=== PATIENT | male | born 1960 | race African-American/Black ===

== ENCOUNTER 2017-06-01 10:14 | Inpatient (IN) | payer OTHER ==
[2017-06-01 13:17] VITALS: BMI 29.5
--- NOTE | 2017-06-01 14:23 | HP ---
CIWA Score - CIWA Score Nausea/Vomitin-No Nausea/No Vomiting Muscle Tremors: 4-Moderate,w/Arms Extend Anxiety: 3 Agitation: 4-Moderately Restless Paroxysmal Sweats: 3 Orientation: 0-Oriented Tacttile Disturbances: 0-None Auditory Disturbances: 0-None Visual Disturbances: 0-None Headache: 0-None Present CIWA-Ar Total Score: 14 Admission ROS BHS - HPI Chief Complaint: I am here to detox from my drinking. Allergies/Adverse Reactions: Allergies Allergy/AdvReac Type Severity Reaction Status Date / Time No Known Allergies Allergy Verified 06/01/17 14:01 History of Present Illness: pt is a 57yr old male with a history of alcohol dependence seeking detox for treatment. Exam Limitations: No Limitations - Ebola screening Have you traveled outside of the country in the last 21 days: No Have you had contact with anyone from an Ebola affected area: No Have you been sick,other than usual withdrawal symptoms: No Do you have a fever: No - Review of Systems Constitutional: No Symptoms Reported, Changes in sleep EENT: reports: No Symptoms Reported Respiratory: reports: No Symptoms reported Cardiac: reports: Lightheadedness GI: reports: Poor Fluid Intake, Indigestion : reports: No Symptoms Reported Musculoskeletal: reports: No Symptoms Reported Integumentary: reports: Flushing, Sweating Neuro: reports: Tingling, Tremors Endocrine: reports: Flushing, Intolerance to Cold, Intolerance to Heat, Increased Hunger Hematology: reports: No Symptoms Reported Psychiatric: reports: Judgement Intact, Mood/Affect Appropiate, Orientated x3, Agitated, Anxious Other Systems: Reviewed and Negative Patient History - Patient Medical History Hx Anemia: No Hx Asthma: No Hx Chronic Obstructive Pulmonary Disease (COPD): No Hx Cancer: No Hx Cardiac Disorders: No Hx Congestive Heart Failure: No Hx Hypertension: No Hx Hypercholesterolemia: No Hx Pacemaker: No HX Cerebrovascular Accident: No Hx Seizures: No Hx Dementia: No Hx Diabetes: No Hx Gastrointestinal Disorders: No Hx Liver Disease: No Hx Genitourinary Disorders: No Hx Sexually Transmitted Disorders: No Hx Renal Disease (ESRD): No Hx Thyroid Disease: No Hx Human Immunodeficiency Virus (HIV): No (negative) Hx Hepatitis C: (negative) Hx Depression: Yes Hx Suicide Attempt: No Hx Bipolar Disorder: No Hx Schizophrenia: Yes - Patient Surgical History Past Surgical History: No Hx Neurologic Surgery: No Hx Cataract Extraction: No Hx Cardiac Surgery: No Hx Lung Surgery: No Hx Breast Surgery: No Hx Breast Biopsy: No Hx Abdominal Surgery: No Hx Appendectomy: No Hx Cholecystectomy: No Hx Genitourinary Surgery: No Hx Section: No Hx Orthopedic Surgery: No Anesthesia Reaction: No - PPD History Previous Implant?: Yes Documented Results: Negative w/o proof PPD to be Administered?: Yes - Smoking Cessation Smoking history: Current every day smoker Have you smoked in the past 12 months: Yes Aproximately how many cigarettes per day: 20 Hx Chewing Tobacco Use: No Initiated information on smoking cessation: Yes 'Breaking Loose' booklet given: 06/01/17 - Substance & Tx. History Hx Alcohol Use: Yes Hx Substance Use: Yes Substance Use Type: Alcohol Hx Substance Use Treatment: Yes - Substances Abused Alcohol-beer Route: Oral Frequency: Daily Amount used: 3-6 pks. beer Age of first use: 16 Date of Last Use: 05/31/17 Family Disease History - Family Disease History Family History: Denies Admission Physical Exam [facility] - Vital Signs Vital Signs: Vital Signs - 24 hr 06/01/17 13:14 Temperature 96.4 F L Pulse Rate 97 H Respiratory 18 Rate Blood Pressure 109/76 - Physical General Appearance: Yes: Appropriately Dressed, Moderate Distress, Tremorous, Irritable, Sweating, Anxious HEENTM: Yes: Hearing grossly Normal, Normal Voice Respiratory: Yes: Lungs Clear, Normal Breath Sounds, No Respiratory Distress Neck: Yes: No masses,lesions,Nodules Breast: Yes: Within Normal Limits Cardiology: Yes: Regular Rhythm, Regular Rate, S1, S2 Abdominal: Yes: Normal Bowel Sounds, Non Tender, Soft Genitourinary: Yes: Within Normal Limits Back: Yes: Normal Inspection Musculoskeletal: Yes: Within Normal Limits, Gait Steady Extremities: Yes: Normal Capillary Refill, Normal Inspection, Non-Tender, Tremors Neurological: Yes: Fully Oriented, Alert, Normal Response Integumentary: Yes: Normal Color, Diaphoresis Lymphatic: Yes: Within Normal Limits - Diagnostic (1) Alcohol dependence with uncomplicated withdrawal Current Visit: Yes Status: Chronic (2) Nicotine dependence Current Visit: Yes Status: Chronic Qualifiers: Nicotine product type: cigarettes Substance use status: uncomplicated Qualified Code(s): F17.210 - Nicotine dependence, cigarettes, uncomplicated; F17.210 - Nicotine dependence, cigarettes, uncomplicated Cleared for Admission [facility] - Detox or Rehab [facility] Level of Care: Medically Managed Detox Regimen/Protocol: Librium [facility] Breath Alcohol Content Breath Alcohol Content: 0.008 Urine Drug Screen - Results Drug Screen Negative: Yes
[2017-06-01] MEDS ORDERED: MENTHOL/PHENOL 1 EACH UD MM PRN (14:24)
[2017-06-01] MEDS ORDERED: LOPERAMIDE HCL 2 MG CAPSULE PO PRN (14:24)
[2017-06-01] MEDS ORDERED: MAGNESIUM CITRATE 300 ML BOTTLE PO PRN (14:24)
[2017-06-01] MEDS ORDERED: guaiFENesin/D-METHORPHAN HB 10 ML UNIT-DOSE CUPS PO PRN (14:24)
[2017-06-01] MEDS ORDERED: IBUPROFEN 400 MG TABLET (FP) PO PRN (14:24)
[2017-06-01] MEDS ORDERED: diphenhydrAMINE HCL 50 MG CAPSULE PO PRN (14:24)
[2017-06-01] MEDS ORDERED: ACETAMINOPHEN 325 MG TABLET (FP) PO PRN (14:24)
[2017-06-01] MEDS ORDERED: MAG HYDROX/AL HYDROX/SIMETH 30 ML UNIT-DOSE CUP PO PRN (14:24)
[2017-06-01] MEDS ORDERED: hydrOXYzine PAMOATE 50 MG CAPSULE (FP) PO PRN (14:24)
[2017-06-01] MEDS ORDERED: NICOTINE POLACRILEX 4 MG GUM BUC PRN (14:24)
[2017-06-01] MEDS ORDERED: MAGNESIUM HYDROX 2400MG/30ML ORAL SUSPENSION 30 ML CUP PO PRN (14:24)
[2017-06-01] MEDS ORDERED: chlordiazePOXIDE HCL 25 MG CAPSULE PO PRN (14:24)
[2017-06-01] MEDS ORDERED: P-EPHED 60MG/TRIPROLIDI 2.5MG TABLET PO PRN (14:24)
[2017-06-01] MEDS ORDERED: chlordiazePOXIDE HCL 25 MG CAPSULE PO ONE (14:48)
[2017-06-01 16:46] LABS: MCH 31.1 pg (25.7-33.7); MCHC 34.3 g/dl (32.0-35.9); MEAN CELL VOLUME 90.7 fl (80-96); MEAN PLT VOLUME 7.9 fl (7.5-11.1); PLATELET COUNT 265 K/MM3 (134-434); RDW 14.2 % (11.9-15.9); WHITE BLOOD COUNT 3.8 K/mm3 (4.0-10.0)
[2017-06-01 17:08] LABS: ALBUMIN 3.5 g/dl (3.4-5.0); ANION GAP 6 (8-16); BILIRUBIN,TOTAL 0.3 mg/dL (0.2-1.0); CALCIUM 9.1 mg/dL (8.5-10.1); CO2 28 mmol/L (21-32); CREATININE 1.1 mg/dL (0.7-1.3); GLUCOSE,RANDOM 92 mg/dL (74-106); SGOT/AST 10 U/L (15-37); SGPT/ALT 11 U/L (12-78)
[2017-06-01 17:09] LABS: ALK PHOS 101 U/L (45-117); TOT PROT 7.1 g/dl (6.4-8.2)
[2017-06-01] MEDS: chlordiazePOXIDE HCL 25 MG CAPSULE PO SCH ×2 (17:34→22:13)
[2017-06-01 21:03] LABS: URINE APPEARANCE CLEAR; URINE BILIRUBIN NEGATIVE (NEGATIVE); URINE BLOOD NEGATIVE (NEGATIVE); URINE COLOR STRAW; URINE GLUCOSE (UA) 1+ (NEGATIVE); URINE KETONE NEGATIVE (NEGATIVE); URINE NITRITE NEGATIVE (NEGATIVE); URINE PROTEIN NEGATIVE (NEGATIVE); URINE UROBILINOGEN NEGATIVE mg/dL (0.2-1.0)
[2017-06-01] MEDS: THIAMINE HCL 100 MG TABLET (FP) PO SCH (22:13)
[2017-06-01 22:28] LABS: URINE LEUK ESTERASE Negative (NEGATIVE)
[2017-06-02] MEDS: chlordiazePOXIDE HCL 25 MG CAPSULE PO SCH ×4 (05:54→22:16)
[2017-06-02] MEDS: PRENATAL VITAMINS W/ FOLIC ACID TABLET (FP) PO SCH (10:07)
[2017-06-02] MEDS: NICOTINE 21 MG/24 HOURS TOPICAL PATCH TD SCH (10:08)
--- NOTE | 2017-06-02 10:18 | CONSULT ---
[facility] Psychiatric Consult - Data Date of interview: 06/02/17 Admission source: [facility] Identifying data: Mr Shultz is a 57 years old single Black male, unemployed on SSI, sharing apartment in program([facility]) Substance Abuse History: Reports history of alcohol use. He started drinking alcohol at age 16, consumes 3x 6pk daily. Last drink on 05/31/17 Medical History: Unremarkable. Smokes cigarettes 1ppd Psychiatric History: Patient is not a good historian. However, reports that he was diagnosed with Schizophrenia more than 10 years ago. Reports 2 previous psychiatric admissions. Claims he does not recall date, name of institution and other details pertaining to these hospitalizations. [facility] that [facility]. He was prescribed [place] 900 mg po HS, Seroquel 200 mg po HS and Invega Sust 156 mg IM Q monthly. Claims that he was last given the injection in a hospital on 05/25/17 . At present, denies experiencing psychotic, depressive symptos, S/H ideations Physical/Sexual Abuse/Trauma History: Denies history of verbal, physical or sexual abuse as well as DV relationship Additional Comment: Reports 6 previous felony convictions. On parole till 2019 Mental Status Exam - Mental Status Exam Alert and Oriented to: Time, Place, Person Cognitive Function: Fair Patient Appearance: Disheveled Mood: Hopeful, Euthymic Affect: Blunted Patient Behavior: Cooperative Speech Pattern: Clear Voice Loudness: Normal Thought Process: Intact Thought Disorder: Present Hallucinations: Denies Suicidal Ideation: Denies Homicidal Ideation: Denies Insight/Judgement: Fair Sleep: Well Appetite: Poor Muscle strength/Tone: Normal Gait/Station: Normal Psychiatric Findings - Problem List ([place] 1, 2,3) (1) Schizophrenia Current Visit: Yes Status: Acute (2) Schizoaffective disorder Current Visit: Yes Status: Ruled-out (3) Alcohol dependence with uncomplicated withdrawal Current Visit: Yes Status: Acute (4) Nicotine dependence Current Visit: Yes Status: Acute - Initial Treatment Plan Initial Treatment Plan: 1) Start Seroquel 200 mg po HS. 2) [place] serum level. 3) Continue inpatient detoxificatio while monitoring for evidence of psychotic decompensation
--- NOTE | 2017-06-02 10:39 | PN ---
[facility] CIWA - CIWA Score Nausea/Vomitin-No Nausea/No Vomiting Muscle Tremors: 4-Moderate,w/Arms Extend Anxiety: 4-Mod. Anxious/Guarded Agitation: 4-Moderately Restless Paroxysmal Sweats: 1-Minimal Palms Moist Orientation: 0-Oriented Tacttile Disturbances: 3-Moderate Itch/Numb/Burn Auditory Disturbances: 0-None Visual Disturbances: 0-None Headache: 0-None Present CIWA-Ar Total Score: 16 BHS Progress Note (SOAP) Subjective: ANXIETY,SWEATS,TREMORS,FATIGUE. Objective: 06/02/17 10:34 Vital Signs Temperature 97.0 F L 06/02/17 09:56 Pulse Rate 78 06/02/17 09:56 Respiratory Rate 18 06/02/17 09:56 Blood Pressure 104/61 06/02/17 09:56 O2 Sat by Pulse Oximetry (%) Laboratory Last Values WBC 3.8 K/mm3 (4.0-10.0) L 06/01/17 14:00 RBC 4.61 M/mm3 (4.00-5.60) 06/01/17 14:00 Hgb 14.4 GM/dL (11.7-16.9) 06/01/17 14:00 Hct 41.8 % (35.4-49) 06/01/17 14:00 MCV 90.7 fl (80-96) 06/01/17 14:00 MCH 31.1 pg (25.7-33.7) 06/01/17 14:00 MCHC 34.3 g/dl (32.0-35.9) 06/01/17 14:00 RDW 14.2 % (11.9-15.9) 06/01/17 14:00 Plt Count 265 K/MM3 (134-434) 06/01/17 14:00 MPV 7.9 fl (7.5-11.1) 06/01/17 14:00 Sodium 141 mmol/L (136-145) 06/01/17 14:00 Potassium 4.4 mmol/L (3.5-5.1) 06/01/17 14:00 Chloride 107 mmol/L (98-107) 06/01/17 14:00 Carbon Dioxide 28 mmol/L (21-32) 06/01/17 14:00 Anion Gap 6 (8-16) L 06/01/17 14:00 BUN 10 mg/dL (7-18) 06/01/17 14:00 Creatinine 1.1 mg/dL (0.7-1.3) 06/01/17 14:00 Creat Clearance w eGFR > 60 (>60) 06/01/17 14:00 Random Glucose 92 mg/dL (74-106) 06/01/17 14:00 Calcium 9.1 mg/dL (8.5-10.1) 06/01/17 14:00 Total Bilirubin 0.3 mg/dL (0.2-1.0) 06/01/17 14:00 AST 10 U/L (15-37) L 06/01/17 14:00 ALT 11 U/L (12-78) L 06/01/17 14:00 Alkaline Phosphatase 101 U/L (45-117) 06/01/17 14:00 Total Protein 7.1 g/dl (6.4-8.2) 06/01/17 14:00 Albumin 3.5 g/dl (3.4-5.0) 06/01/17 14:00 Urine Color Straw 06/01/17 15:59 Urine Appearance Clear 06/01/17 15:59 Urine pH 5.0 (5.0-8.0) 06/01/17 15:59 Ur Specific [place] <= 1.005 (1.005-1.025) 06/01/17 15:59 Urine Protein Negative (NEGATIVE) 06/01/17 15:59 Urine Glucose (UA) 1+ (NEGATIVE) H 06/01/17 15:59 Urine Ketones Negative (NEGATIVE) 06/01/17 15:59 Urine Blood Negative (NEGATIVE) 06/01/17 15:59 Urine Nitrite Negative (NEGATIVE) 06/01/17 15:59 Urine Bilirubin Negative (NEGATIVE) 06/01/17 15:59 Urine Urobilinogen Negative mg/dL (0.2-1.0) 06/01/17 15:59 Ur Leukocyte Esterase Negative (NEGATIVE) 06/01/17 15:59 Assessment: 06/02/17 10:34 WITHDRAWAL SX Plan: CONTINUE DETOX
[2017-06-02 11:21] LABS: HIV 1 & 2 AB NEGATIVE; HIV 1 AGp24 NEGATIVE
[2017-06-02] MEDS: THIAMINE HCL 100 MG TABLET (FP) PO SCH (22:16)
[2017-06-02] MEDS: QUEtiapine FUMARATE 200 MG TABLET PO SCH (22:16)
[2017-06-03] MEDS: chlordiazePOXIDE HCL 25 MG CAPSULE PO SCH ×2 (06:07→10:21)
--- NOTE | 2017-06-03 10:18 | EKG ---
Test Reason : Blood Pressure : / mmHG Vent. Rate : 071 BPM Atrial Rate : 071 BPM P-R Int : 148 ms QRS Dur : 092 ms QT Int : 396 ms P-R-T Axes : 059 -05 011 degrees QTc Int : 430 ms NORMAL SINUS RHYTHM NORMAL ECG NO PREVIOUS ECGS AVAILABLE Confirmed by VAHE CASON, RASHEED ([id number]) on 06/03/2017 10:18:05 AM Referred By: Confirmed By:RASHEED COTTER MD
[2017-06-03] MEDS: NICOTINE 21 MG/24 HOURS TOPICAL PATCH TD SCH (10:21)
[2017-06-03] MEDS: PRENATAL VITAMINS W/ FOLIC ACID TABLET (FP) PO SCH (10:21)
--- NOTE | 2017-06-03 10:40 | PN ---
[facility] CIWA - CIWA Score Nausea/Vomitin-No Nausea/No Vomiting Muscle Tremors: 4-Moderate,w/Arms Extend Anxiety: 4-Mod. Anxious/Guarded Agitation: 4-Moderately Restless Paroxysmal Sweats: 1-Minimal Palms Moist Orientation: 0-Oriented Tacttile Disturbances: 3-Moderate Itch/Numb/Burn Auditory Disturbances: 0-None Visual Disturbances: 0-None Headache: 0-None Present CIWA-Ar Total Score: 16 BHS Progress Note (SOAP) Subjective: SLIGHT ANXIETY. LESS IRRITABILITY. Objective: 06/03/17 10:39 Vital Signs Temperature 96.6 F L 06/03/17 09:43 Pulse Rate 71 06/03/17 09:43 Respiratory Rate 18 06/03/17 09:43 Blood Pressure 127/75 06/03/17 09:43 O2 Sat by Pulse Oximetry (%) Laboratory Last Values WBC 3.8 K/mm3 (4.0-10.0) L 06/01/17 14:00 RBC 4.61 M/mm3 (4.00-5.60) 06/01/17 14:00 Hgb 14.4 GM/dL (11.7-16.9) 06/01/17 14:00 Hct 41.8 % (35.4-49) 06/01/17 14:00 MCV 90.7 fl (80-96) 06/01/17 14:00 MCH 31.1 pg (25.7-33.7) 06/01/17 14:00 MCHC 34.3 g/dl (32.0-35.9) 06/01/17 14:00 RDW 14.2 % (11.9-15.9) 06/01/17 14:00 Plt Count 265 K/MM3 (134-434) 06/01/17 14:00 MPV 7.9 fl (7.5-11.1) 06/01/17 14:00 Sodium 141 mmol/L (136-145) 06/01/17 14:00 Potassium 4.4 mmol/L (3.5-5.1) 06/01/17 14:00 Chloride 107 mmol/L (98-107) 06/01/17 14:00 Carbon Dioxide 28 mmol/L (21-32) 06/01/17 14:00 Anion Gap 6 (8-16) L 06/01/17 14:00 BUN 10 mg/dL (7-18) 06/01/17 14:00 Creatinine 1.1 mg/dL (0.7-1.3) 06/01/17 14:00 Creat Clearance w eGFR > 60 (>60) 06/01/17 14:00 Random Glucose 92 mg/dL (74-106) 06/01/17 14:00 Calcium 9.1 mg/dL (8.5-10.1) 06/01/17 14:00 Total Bilirubin 0.3 mg/dL (0.2-1.0) 06/01/17 14:00 AST 10 U/L (15-37) L 06/01/17 14:00 ALT 11 U/L (12-78) L 06/01/17 14:00 Alkaline Phosphatase 101 U/L (45-117) 06/01/17 14:00 Total Protein 7.1 g/dl (6.4-8.2) 06/01/17 14:00 Albumin 3.5 g/dl (3.4-5.0) 06/01/17 14:00 Urine Color Straw 06/01/17 15:59 Urine Appearance Clear 06/01/17 15:59 Urine pH 5.0 (5.0-8.0) 06/01/17 15:59 Ur Specific [place] <= 1.005 (1.005-1.025) 06/01/17 15:59 Urine Protein Negative (NEGATIVE) 06/01/17 15:59 Urine Glucose (UA) 1+ (NEGATIVE) H 06/01/17 15:59 Urine Ketones Negative (NEGATIVE) 06/01/17 15:59 Urine Blood Negative (NEGATIVE) 06/01/17 15:59 Urine Nitrite Negative (NEGATIVE) 06/01/17 15:59 Urine Bilirubin Negative (NEGATIVE) 06/01/17 15:59 Urine Urobilinogen Negative mg/dL (0.2-1.0) 06/01/17 15:59 Ur Leukocyte Esterase Negative (NEGATIVE) 06/01/17 15:59 [place] 0.5 MEQ/L (0.6-1.2) L 06/02/17 10:30 RPR Titer Nonreactive (NONREACTIVE) 06/01/17 14:00 HIV 1&2 Antibody Screen Negative 06/01/17 08:00 HIV P24 Antigen Negative 06/01/17 08:00 Assessment: 06/03/17 10:40 WITHDRAWAL S Plan: CONTINUE DETOX
[2017-06-03] MEDS: chlordiazePOXIDE 5 MG CAPSULE PO SCH ×2 (17:20→22:16)
[2017-06-03] MEDS: THIAMINE HCL 100 MG TABLET (FP) PO SCH (22:16)
[2017-06-03] MEDS: QUEtiapine FUMARATE 200 MG TABLET PO SCH (22:16)
[2017-06-04] MEDS: chlordiazePOXIDE 5 MG CAPSULE PO SCH ×2 (06:32→10:20)
[2017-06-04] MEDS: NICOTINE 21 MG/24 HOURS TOPICAL PATCH TD SCH (10:20)
[2017-06-04] MEDS: PRENATAL VITAMINS W/ FOLIC ACID TABLET (FP) PO SCH (10:20)
--- NOTE | 2017-06-04 10:34 | PN ---
BHS Progress Note (SOAP) Subjective: DECREASED ANXIETY,TREMORS,SWEATS. ALERT O X 3. NAD. Objective: 06/04/17 10:33 Vital Signs Temperature 96.4 F L 06/04/17 09:38 Pulse Rate 78 06/04/17 09:38 Respiratory Rate 18 06/04/17 09:38 Blood Pressure 104/61 06/04/17 09:38 O2 Sat by Pulse Oximetry (%) Laboratory Last Values WBC 3.8 K/mm3 (4.0-10.0) L 06/01/17 14:00 RBC 4.61 M/mm3 (4.00-5.60) 06/01/17 14:00 Hgb 14.4 GM/dL (11.7-16.9) 06/01/17 14:00 Hct 41.8 % (35.4-49) 06/01/17 14:00 MCV 90.7 fl (80-96) 06/01/17 14:00 MCH 31.1 pg (25.7-33.7) 06/01/17 14:00 MCHC 34.3 g/dl (32.0-35.9) 06/01/17 14:00 RDW 14.2 % (11.9-15.9) 06/01/17 14:00 Plt Count 265 K/MM3 (134-434) 06/01/17 14:00 MPV 7.9 fl (7.5-11.1) 06/01/17 14:00 Sodium 141 mmol/L (136-145) 06/01/17 14:00 Potassium 4.4 mmol/L (3.5-5.1) 06/01/17 14:00 Chloride 107 mmol/L (98-107) 06/01/17 14:00 Carbon Dioxide 28 mmol/L (21-32) 06/01/17 14:00 Anion Gap 6 (8-16) L 06/01/17 14:00 BUN 10 mg/dL (7-18) 06/01/17 14:00 Creatinine 1.1 mg/dL (0.7-1.3) 06/01/17 14:00 Creat Clearance w eGFR > 60 (>60) 06/01/17 14:00 Random Glucose 92 mg/dL (74-106) 06/01/17 14:00 Calcium 9.1 mg/dL (8.5-10.1) 06/01/17 14:00 Total Bilirubin 0.3 mg/dL (0.2-1.0) 06/01/17 14:00 AST 10 U/L (15-37) L 06/01/17 14:00 ALT 11 U/L (12-78) L 06/01/17 14:00 Alkaline Phosphatase 101 U/L (45-117) 06/01/17 14:00 Total Protein 7.1 g/dl (6.4-8.2) 06/01/17 14:00 Albumin 3.5 g/dl (3.4-5.0) 06/01/17 14:00 Urine Color Straw 06/01/17 15:59 Urine Appearance Clear 06/01/17 15:59 Urine pH 5.0 (5.0-8.0) 06/01/17 15:59 Ur Specific [place] <= 1.005 (1.005-1.025) 06/01/17 15:59 Urine Protein Negative (NEGATIVE) 06/01/17 15:59 Urine Glucose (UA) 1+ (NEGATIVE) H 06/01/17 15:59 Urine Ketones Negative (NEGATIVE) 06/01/17 15:59 Urine Blood Negative (NEGATIVE) 06/01/17 15:59 Urine Nitrite Negative (NEGATIVE) 06/01/17 15:59 Urine Bilirubin Negative (NEGATIVE) 06/01/17 15:59 Urine Urobilinogen Negative mg/dL (0.2-1.0) 06/01/17 15:59 Ur Leukocyte Esterase Negative (NEGATIVE) 06/01/17 15:59 [place] 0.5 MEQ/L (0.6-1.2) L 06/02/17 10:30 RPR Titer Nonreactive (NONREACTIVE) 06/01/17 14:00 HIV 1&2 Antibody Screen Negative 06/01/17 08:00 HIV P24 Antigen Negative 06/01/17 08:00 Assessment: 06/04/17 10:33 DECREASED WITHDRAWAL SX Plan: CONTINUE DETOX
[2017-06-04] MEDS: chlordiazePOXIDE HCL 10 MG CAPSULE PO SCH ×2 (17:21→22:29)
[2017-06-04] MEDS: THIAMINE HCL 100 MG TABLET (FP) PO SCH (22:29)
[2017-06-04] MEDS: QUEtiapine FUMARATE 200 MG TABLET PO SCH (22:29)
[2017-06-05] MEDS: chlordiazePOXIDE HCL 10 MG CAPSULE PO SCH ×2 (05:36→10:34)
[2017-06-05] MEDS: PRENATAL VITAMINS W/ FOLIC ACID TABLET (FP) PO SCH (10:34)
[2017-06-05] MEDS: NICOTINE 21 MG/24 HOURS TOPICAL PATCH TD SCH (10:34)
[2017-06-05 13:13] VITALS: BP 114/77; PULSE 89; TEMP 97
--- NOTE | 2017-06-05 15:48 | DS ---
[facility] Detox Discharge Summary Admission Date: 06/01/17 Discharge Date: 06/05/17 - History Present History: Alcohol Dependence Additional Comments: PATIENT ADVISED TO FOLLOW-UP WITH LOCAL 12-STEP / AA OUTPATIENT SUPPORT GROUP FOR AFTERCARE. PATIENT WAS DISCHARGED FROM DETOX UNIT IN STABLE MEDICAL CONDITION. Pertinent Past History: Nicotine Dependence, Depression, Schizophrenia. - Physical Exam Results Vital Signs: Vital Signs Temperature 97.0 F L 06/05/17 13:12 Pulse Rate 89 06/05/17 13:12 Respiratory Rate 18 06/05/17 13:12 Blood Pressure 114/77 06/05/17 13:12 O2 Sat by Pulse Oximetry (%) Pertinent Admission Physical Exam Findings: WITHDRAWAL SYMPTOMS. Laboratory Tests 06/01/17 06/01/17 06/01/17 08:00 14:00 14:00 WBC 3.8 L RBC 4.61 Hgb 14.4 Hct 41.8 MCV 90.7 MCH 31.1 MCHC 34.3 RDW 14.2 Plt Count 265 MPV 7.9 Sodium 141 Potassium 4.4 Chloride 107 Carbon Dioxide 28 Anion Gap 6 L BUN 10 Creatinine 1.1 Creat Clearance w eGFR > 60 Random Glucose 92 Calcium 9.1 Total Bilirubin 0.3 AST 10 L ALT 11 L Alkaline Phosphatase 101 Total Protein 7.1 Albumin 3.5 Urine Color Urine Appearance Urine pH Ur Specific [place] Urine Protein Urine Glucose (UA) Urine Ketones Urine Blood Urine Nitrite Urine Bilirubin Urine Urobilinogen Ur Leukocyte Esterase [place] RPR Titer HIV 1&2 Antibody Screen Negative HIV P24 Antigen Negative 06/01/17 06/01/17 06/02/17 14:00 15:59 10:30 WBC RBC Hgb Hct MCV MCH MCHC RDW Plt Count MPV Sodium Potassium Chloride Carbon Dioxide Anion Gap BUN Creatinine Creat Clearance w eGFR Random Glucose Calcium Total Bilirubin AST ALT Alkaline Phosphatase Total Protein Albumin Urine Color Straw Urine Appearance Clear Urine pH 5.0 Ur Specific [place] <= 1.005 Urine Protein Negative Urine Glucose (UA) 1+ H Urine Ketones Negative Urine Blood Negative Urine Nitrite Negative Urine Bilirubin Negative Urine Urobilinogen Negative Ur Leukocyte Esterase Negative [place] 0.5 L RPR Titer Nonreactive HIV 1&2 Antibody Screen HIV P24 Antigen LABS NOTED. - Treatment Hospital Course: Detox Protocol Followed, Detoxed Safely, Responded well, Discharged Condition Good Patient has Accepted a Rehab Referral to: NO. PT ADVISED TO FOLLOW-UP WITH LOCAL 12-STEP/AA OUTPATIENT SUPPORT GROUP. - Medication Discharge Medications: Ambulatory Orders [place] Carbonate [Eskalith -] 900 mg PO HS 06/01/17 Quetiapine Fumarate [Seroquel -] 200 mg PO HS 06/01/17 - Diagnosis (1) Alcohol dependence with uncomplicated withdrawal Status: Acute (2) Nicotine dependence Status: Chronic Qualifiers: Nicotine product type: cigarettes Substance use status: in withdrawal Qualified Code(s): F17.213 - Nicotine dependence, cigarettes, with withdrawal; F17.213 - Nicotine dependence, cigarettes, with withdrawal (3) Schizophrenia Status: Chronic Qualifiers: Schizophrenia type: unspecified Qualified Code(s): F20.9 - Schizophrenia, unspecified; F20.9 - Schizophrenia, unspecified; F20.9 - Schizophrenia, unspecified; F20.9 - Schizophrenia, unspecified - AMA Did Patient Leave Against Medical Advice: No
== END 2017-06-05 12:45 | disposition home or self-care (01) | DRG 775 ==
LOC: YASAS 10:14 → Y3N 14:46
PROVIDERS: ADMIT Internal Medicine; ATTEND Internal Medicine
PROC: HZ2ZZZZ Detoxification Services for Substance Abuse Treatment (ICD-10-PCS; principal; 2017-06-01)
DX: F10.230 Alcohol dependence with withdrawal, uncomplicated (principal); F17.213 Nicotine dependence, cigarettes, with withdrawal; F20.9 Schizophrenia, unspecified; F25.9 Schizoaffective disorder, unspecified
CPT/HCPCS: 36415; 80053; 80178; 81003; 85027; 86593; 87389; 93005; 93010

== ENCOUNTER 2018-09-29 13:37 | Inpatient (IN) | payer OTHER ==
[2018-09-29 16:26] VITALS: BMI 28.8
--- NOTE | 2018-09-29 16:59 | HP ---
"CIWA Score Nausea/Vomitin Muscle Tremors: 4-Moderate,w/Arms Extend Anxiety: 4-Mod. Anxious/Guarded Agitation: 1-Slight > Activity Paroxysmal Sweats: 3 (Increased facial moisture) Orientation: 0-Oriented Tacttile Disturbances: 0-None Auditory Disturbances: 0-None Visual Disturbances: 0-None Headache: 0-None Present CIWA-Ar Total Score: 15 - Admission Criteria OASAS Guidelines: Admission for Medically Managed Detox: Requires at least one of the followin. CIWA greater than 12 2. Seizures within the past 24 hours 3. Delirium tremens within the past 24 hours 4. Hallucinations within the past 24 hours 5. Acute intervention needed for co occurring medical disorder 6. Acute intervention needed for co occurring psychiatric disorder 7. Severe withdrawal that cannot be handled at a lower level of care (continued vomiting, continued diarrhea, abnormal vital signs) requiring intravenous medication and/or fluids 8. Patient presents the following: CIWA greater than 12 Admission Criteria Met: Admission criteria met Admission ROS [facility] Chief Complaint: Here for alcohol withdrawal and cocaine too. Allergies/Adverse Reactions: Allergies Allergy/AdvReac Type Severity Reaction Status Date / Time No Known Allergies Allergy Verified 09/29/18 17:09 History of Present Illness: Here for alcohol and cocaine. Alcohol use began at age 16. Cocaine use began at age 18. Nicotine use began at age 31. States sharp chest pain about 1-2 minutes approx 1 week ago. States was smoking cigarettes and crack at the time. States went away on own after drinking water. Mental Health: Hx Depression and Schizophrenia. Denies thoughts of harming self or others. States compliant w/ MH meds. Denies seizures, blackouts, or overdose. Search Terms: Martinez Shultz, 1960 Search Date: 09/29/2018 04:49:09 PM The Drug Utilization Report below displays all of the controlled substance prescriptions, if any, that your patient has filled in the last twelve months. The information displayed on this report is compiled from pharmacy submissions to the Department, and accurately reflects the information as submitted by the pharmacies. This report was requested by: Marcela Mcgrath | Reference #: [id number] There are no results for the search terms that you entered. Exam Limitations: No Limitations - Ebola screening Have you traveled outside of the country in the last 21 days: No Have you had contact with anyone from an Ebola affected area: No Have you been sick,other than usual withdrawal symptoms: No Do you have a fever: No - Review of Systems Constitutional: Chills, Diaphoresis EENT: reports: Blurred Vision (Wears glasses), Other (States throat is scratchy) Respiratory: reports: No Symptoms reported Cardiac: reports: No Symptoms Reported, Chest Pain (1 week ago.) GI: reports: Nausea : reports: No Symptoms Reported Musculoskeletal: reports: No Symptoms Reported Integumentary: reports: No Symptoms Reported Neuro: reports: Tremors Endocrine: reports: Increased Thirst Hematology: reports: No Symptoms Reported Psychiatric: reports: Judgement Intact, Orientated x3, Agitated, Anxious, Depressed (Denies thoughts of harming self or others.) Patient History - Patient Medical History Hx Anemia: No Hx Asthma: No Hx Chronic Obstructive Pulmonary Disease (COPD): No Hx Cancer: No Hx Cardiac Disorders: No Hx Congestive Heart Failure: No Hx Hypertension: No Hx Hypercholesterolemia: No Hx Pacemaker: No HX Cerebrovascular Accident: No Hx Seizures: No Hx Dementia: No Hx Diabetes: No Hx Gastrointestinal Disorders: No Hx Liver Disease: No Hx Genitourinary Disorders: No Hx Sexually Transmitted Disorders: No Hx Renal Disease (ESRD): No Hx Thyroid Disease: No Hx Human Immunodeficiency Virus (HIV): No (negative) Hx Hepatitis C: (negative) Hx Depression: Yes Hx Suicide Attempt: No Hx Bipolar Disorder: No Hx Schizophrenia: Yes - Patient Surgical History Past Surgical History: No Hx Neurologic Surgery: No Hx Cataract Extraction: No Hx Cardiac Surgery: No Hx Lung Surgery: No Hx Breast Surgery: No Hx Breast Biopsy: No Hx Abdominal Surgery: No Hx Appendectomy: No Hx Cholecystectomy: No Hx Genitourinary Surgery: No Hx Section: No Hx Orthopedic Surgery: No Anesthesia Reaction: No - PPD History Previous Implant?: Yes Documented Results: Negative w/proof Implanted On Prior R Admission?: Yes Date: 06/03/17 PPD to be Administered?: Yes - Smoking Cessation Smoking history: Current every day smoker Have you smoked in the past 12 months: Yes Aproximately how many cigarettes per day: 20 Hx Chewing Tobacco Use: No Initiated information on smoking cessation: Yes 'Breaking Loose' booklet given: 09/29/18 - Substance & Tx. History Hx Alcohol Use: Yes Hx Substance Use: Yes Substance Use Type: Alcohol, Cocaine Hx Substance Use Treatment: Yes (detox, ) - Substances Abused Alcohol Route: Oral Frequency: Daily Amount used: 1 PINT BEER Age of first use: 16 Date of Last Use: 09/28/18 Cocaine Route: Smoking Frequency: Daily Amount used: 1 GRAM Age of first use: 18 Date of Last Use: 09/28/18 Admission Physical Exam [facility] - Vital Signs Vital Signs: Vital Signs - 24 hr 09/29/18 16:23 Temperature 97.2 F L Pulse Rate 86 Respiratory 20 Rate Blood Pressure 113/71 - Physical General Appearance: Yes: Mild Distress, Tremorous, Irritable (Very irrtiable), Sweating (Increased facial moisture), Anxious HEENTM: Yes: EOMI, Hearing grossly Normal, Normocephalic, Normal Voice, DELIA, Pharynx Normal Respiratory: Yes: Lungs Clear, Normal Breath Sounds, No Respiratory Distress Neck: Yes: No masses,lesions,Nodules, Supple Breast: Yes: Breast Exam Deferred Cardiology: Yes: Regular Rhythm, Regular Rate, S1, S2 Abdominal: Yes: Non Tender, Soft, Increased Bowel Sounds, Protuberent ( Increased abdominal adiposity) Genitourinary: Yes: Within Normal Limits Back: Yes: Normal Inspection Musculoskeletal: Yes: full range of Motion, Gait Steady Extremities: Yes: Normal Capillary Refill, Normal Range of Motion, Non-Tender, Tremors (tremors w/ arm elevation) Neurological: Yes: screen tender II-XII NML intact, Fully Oriented, Alert, Motor Strength 5/5 Integumentary: Yes: Normal Color, Warm, Diaphoresis (Increased facial moisture) Lymphatic: Yes: Within Normal Limits - Diagnostic (1) Cocaine dependence, uncomplicated Current Visit: Yes Status: Chronic (2) Alcohol dependence with uncomplicated withdrawal Current Visit: Yes Status: Acute (3) Nicotine dependence Current Visit: Yes Status: Chronic Qualifiers: Nicotine product type: cigarettes Substance use status: in withdrawal Qualified Code(s): F17.213 - Nicotine dependence, cigarettes, with withdrawal (4) Schizophrenia Current Visit: Yes Status: Chronic Qualifiers: Schizophrenia type: unspecified Qualified Code(s): F20.9 - Schizophrenia, unspecified Cleared for Admission S - Detox or Rehab [facility] Level of Care: Medically Managed Detox Regimen/Protocol: Librium S Breath Alcohol Content Breath Alcohol Content: 0 Urine Drug Screen - Results Drug Screen Negative: No Urine Drug Screen Results: [facility]-Cocaine Inpatient Rehab Admission - Rehab Decision to Admit Inpatient rehab admission?: No"
[2018-09-29] MEDS ORDERED: chlordiazePOXIDE HCL 25 MG CAPSULE PO PRN (20:43)
[2018-09-29] MEDS ORDERED: P-EPHED 60MG/TRIPROLIDI 2.5MG TABLET PO PRN (20:44)
[2018-09-29] MEDS ORDERED: MAG HYDROX/AL HYDROX/SIMETH 30 ML UNIT-DOSE CUP PO PRN (20:44)
[2018-09-29] MEDS ORDERED: MENTHOL/PHENOL 1 EACH UD MM PRN (20:44)
[2018-09-29] MEDS ORDERED: NICOTINE POLACRILEX 2 MG GUM BC PRN (20:44)
[2018-09-29] MEDS ORDERED: ACETAMINOPHEN 325 MG TABLET (FP) PO PRN (20:44)
[2018-09-29] MEDS ORDERED: LOPERAMIDE HCL 2 MG CAPSULE PO PRN (20:44)
[2018-09-29] MEDS ORDERED: MAGNESIUM CITRATE 300 ML BOTTLE PO PRN (20:44)
[2018-09-29] MEDS ORDERED: MAGNESIUM HYDROX 2400MG/30ML ORAL SUSPENSION 30 ML CUP PO PRN (20:44)
[2018-09-29] MEDS ORDERED: IBUPROFEN 400 MG TABLET (FP) PO PRN (20:44)
[2018-09-29] MEDS ORDERED: MELATONIN 5 MG TABLETS PO PRN (22:00)
[2018-09-29] MEDS: THIAMINE HCL 100 MG TABLET (FP) PO SCH (22:27)
[2018-09-29] MEDS: chlordiazePOXIDE HCL 25 MG CAPSULE PO SCH (22:28)
[2018-09-29 23:08] LABS: URINE APPEARANCE CLEAR; URINE BILIRUBIN NEGATIVE (<2.0 mg/dL); URINE COLOR YELLOW; URINE GLUCOSE (UA) NEGATIVE (NEGATIVE); URINE KETONE NEGATIVE (NEGATIVE); URINE LEUK ESTERASE NEGATIVE (NEGATIVE); URINE NITRITE NEGATIVE (NEGATIVE); URINE PROTEIN NEGATIVE (NEGATIVE); URINE UROBILINOGEN 4.0 E.U/dl mg/dL (0.2-1.0)
[2018-09-30] MEDS: chlordiazePOXIDE HCL 25 MG CAPSULE PO SCH ×4 (05:55→22:33)
--- NOTE | 2018-09-30 08:04 | CONSULT ---
[facility] Psychiatric Consult - Data Date of interview: 09/30/18 Admission source: [facility] Identifying data: This is a 58 years old male, single, childless, living with roommate, , unemployed, with SSI financial support, with history of psychiatric hospitalizations, history of Paranoid Schizoiphrenia. Patient is here with Alcohol Cocaine, Nicotine dependence history, is reporting withdrtawal symptoms and seeking for detox.Patient denies suicidal and homicidal history. Substance Abuse History: Alcohol use began at age 16. Cocaine use began at age 18. Nicotine use began at age 31. Smoking history: Current every day smoker. Have you smoked in the past 12 months: Yes. Aproximately how many cigarettes per day: 20. Hx Chewing Tobacco Use: No. Initiated information on smoking cessation: Yes. 'Breaking Loose' booklet given: 09/29/18. - Substance & Tx. History. Hx Alcohol Use: Yes. Hx Substance Use: Yes. Substance Use Type: Alcohol, Cocaine. Hx Substance Use Treatment: Yes (detox, ). - Substances Abused. Alcohol. Route: Oral. Frequency: Daily. Amount used: 1 PINT BEER. Age of first use: 16. Date of Last Use: 09/28/18. Cocaine. Route: Smoking. Frequency: Daily. Amount used: 1 GRAM. Age of first use: 18. Date of Last Use: 09/28/18 Medical History: Patient denies significant medical issues Psychiatric History: Patient reports hsitory of Schizophrenia, history of psychiatric admission with most recent one on 2018 at [facility], reports currently satble on: Invega Sustenna injections 156 mg / month , with last injection done on 09/28/18, Seroquel 300mg po qhs. Patient denies suicidal, homicidal ideation Physical/Sexual Abuse/Trauma History: Unclear Additional Comment: Invega Sustenna injections 156 mg / month , last injection done on 09/28/18,. Seroquel 300mg po qhs Mental Status Exam - Mental Status Exam Alert and Oriented to: Person Cognitive Function: Fair Patient Appearance: Unkempt Mood: Sad Affect: Flat Patient Behavior: Sedated Speech Pattern: Delayed Voice Loudness: Mildly Soft/Quiet Thought Process: Circumstantial, Goal Oriented Thought Disorder: Being Controlled Hallucinations: Denies Suicidal Ideation: Denies Homicidal Ideation: Denies Insight/Judgement: Fair Sleep: Difficulty falling asleep Appetite: Weight gain Muscle strength/Tone: Mild Hypotonicity Gait/Station: Shuffling Additional Comments: Invega Sustenna injections 156 mg / month , last injection done on 09/28/18,. Seroquel 300mg po qhs Psychiatric Findings - Problem List ([place] 1, 2,3) (1) Alcohol dependence with uncomplicated withdrawal Current Visit: Yes Status: Acute (2) Cocaine dependence, uncomplicated Current Visit: Yes Status: Chronic (3) Nicotine dependence Current Visit: Yes Status: Chronic Qualifiers: Nicotine product type: cigarettes Substance use status: in withdrawal Qualified Code(s): F17.213 - Nicotine dependence, cigarettes, with withdrawal (4) Schizophrenia Current Visit: Yes Status: Chronic Qualifiers: Schizophrenia type: unspecified Qualified Code(s): F20.9 - Schizophrenia, unspecified - Initial Treatment Plan Initial Treatment Plan: Invega Sustenna injections 156 mg / month , last injection done on 09/28/18,. Seroquel 300mg po qhs
[2018-09-30 10:29] LABS: HEMATOCRIT 36.9 % (35.4-49); MCH 31.6 pg (25.7-33.7); MCHC 35.3 g/dl (32.0-35.9); MEAN CELL VOLUME 89.6 fl (80-96); MEAN PLT VOLUME 7.7 fl (7.5-11.1); PLATELET COUNT 220 K/MM3 (134-434); RBC 4.12 M/mm3 (4.00-5.60); RDW 13.9 % (11.9-15.9); WHITE BLOOD COUNT 4.2 K/mm3 (4.0-10.0)
--- NOTE | 2018-09-30 10:49 | PN ---
S CIWA - CIWA Score Nausea/Vomitin-No Nausea/No Vomiting Muscle Tremors: 4-Moderate,w/Arms Extend Anxiety: 4-Mod. Anxious/Guarded Agitation: 3 Paroxysmal Sweats: 3 Orientation: 0-Oriented Tacttile Disturbances: 0-None Auditory Disturbances: 0-None Visual Disturbances: 0-None Headache: 0-None Present CIWA-Ar Total Score: 14 [facility] Progress Note (SOAP) Subjective: sweats shakes interrupted sleep body aches irritable Objective: 09/30/18 10:48 Vital Signs Temperature 97.5 F L 09/30/18 10:21 Pulse Rate 77 09/30/18 10:21 Respiratory Rate 18 09/30/18 10:21 Blood Pressure 110/64 09/30/18 10:21 O2 Sat by Pulse Oximetry (%) Laboratory Tests 09/29/18 09/30/18 22:00 07:00 WBC 4.2 RBC 4.12 Hgb 13.0 Hct 36.9 MCV 89.6 MCH 31.6 MCHC 35.3 RDW 13.9 Plt Count 220 MPV 7.7 Urine Color Yellow Urine Appearance Clear Urine pH 5.0 Ur Specific [place] 1.023 Urine Protein Negative Urine Glucose (UA) Negative Urine Ketones Negative Urine Blood Negative Urine Nitrite Negative Urine Bilirubin Negative Urine Urobilinogen 4.0 e.u/dl Ur Leukocyte Esterase Negative rest of labs pending aaox3 ambulating no acute distress Assessment: 09/30/18 10:49 withdrawal sx Plan: continue detox increase fluids f/u pending labs
[2018-09-30] MEDS: PRENATAL VITAMINS W/ FOLIC ACID TABLET (FP) PO SCH (10:59)
[2018-09-30] MEDS: NICOTINE 14 MG/24 HOURS TOPICAL PATCH TD SCH (11:00)
[2018-09-30 11:08] LABS: ALBUMIN 3.1 g/dl (3.4-5.0); ALK PHOS 77 U/L (45-117); ANION GAP 5 MMOL/L (8-16); BILIRUBIN,TOTAL 0.3 mg/dL (0.2-1); BLOOD UREA NITROGEN 18 mg/dL (7-18); CALCIUM 8.6 mg/dL (8.5-10.1); CHLORIDE 106 mmol/L (98-107); CO2 28 mmol/L (21-32); CREATININE 0.9 mg/dL (0.55-1.3); GLUCOSE,RANDOM 96 mg/dL (74-106); SGOT/AST 16 U/L (15-37); SGPT/ALT 11 U/L (13-61); SODIUM 139 mmol/L (136-145)
--- NOTE | 2018-09-30 16:47 | EKG ---
Test Reason : Blood Pressure : / mmHG Vent. Rate : 078 BPM Atrial Rate : 078 BPM P-R Int : 136 ms QRS Dur : 078 ms QT Int : 378 ms P-R-T Axes : 066 019 030 degrees QTc Int : 430 ms NORMAL SINUS RHYTHM NORMAL ECG WHEN COMPARED WITH ECG OF 01-JUN-2017 15:32, NO SIGNIFICANT CHANGE WAS FOUND Confirmed by CRIS SMITH MD ([id number]) on 09/30/2018 4:47:25 PM Referred By: Confirmed By:CRIS SMITH MD
[2018-09-30] MEDS: QUEtiapine FUMARATE 300 MG TABLET PO SCH (22:33)
[2018-09-30] MEDS: THIAMINE HCL 100 MG TABLET (FP) PO SCH (22:33)
[2018-10-01] MEDS: chlordiazePOXIDE HCL 25 MG CAPSULE PO SCH ×3 (05:37→16:57)
[2018-10-01] MEDS: PRENATAL VITAMINS W/ FOLIC ACID TABLET (FP) PO SCH (10:28)
[2018-10-01] MEDS: NICOTINE 14 MG/24 HOURS TOPICAL PATCH TD SCH (10:28)
--- NOTE | 2018-10-01 12:44 | PN ---
[facility] CIWA - CIWA Score Nausea/Vomitin-No Nausea/No Vomiting Muscle Tremors: 3 Anxiety: 3 Agitation: 3 Paroxysmal Sweats: 2 Orientation: 0-Oriented Tacttile Disturbances: 0-None Auditory Disturbances: 0-None Visual Disturbances: 0-None Headache: 0-None Present CIWA-Ar Total Score: 11 [facility] Progress Note (SOAP) Subjective: sweats anxiety irritable agitation Objective: 10/01/18 12:44 Vital Signs Temperature 98.2 F 10/01/18 09:23 Pulse Rate 84 10/01/18 09:23 Respiratory Rate 19 10/01/18 09:23 Blood Pressure 112/69 10/01/18 09:23 O2 Sat by Pulse Oximetry (%) Laboratory Tests 09/29/18 09/30/18 09/30/18 22:00 07:00 07:00 WBC 4.2 RBC 4.12 Hgb 13.0 Hct 36.9 MCV 89.6 MCH 31.6 MCHC 35.3 RDW 13.9 Plt Count 220 MPV 7.7 Sodium 139 Potassium 4.0 Chloride 106 Carbon Dioxide 28 Anion Gap 5 L BUN 18 Creatinine 0.9 Creat Clearance w eGFR > 60 Random Glucose 96 Calcium 8.6 Total Bilirubin 0.3 AST 16 ALT 11 L Alkaline Phosphatase 77 Total Protein 6.0 L Albumin 3.1 L Urine Color Yellow Urine Appearance Clear Urine pH 5.0 Ur Specific [place] 1.023 Urine Protein Negative Urine Glucose (UA) Negative Urine Ketones Negative Urine Blood Negative Urine Nitrite Negative Urine Bilirubin Negative Urine Urobilinogen 4.0 e.u/dl Ur Leukocyte Esterase Negative RPR Titer 09/30/18 07:00 WBC RBC Hgb Hct MCV MCH MCHC RDW Plt Count MPV Sodium Potassium Chloride Carbon Dioxide Anion Gap BUN Creatinine Creat Clearance w eGFR Random Glucose Calcium Total Bilirubin AST ALT Alkaline Phosphatase Total Protein Albumin Urine Color Urine Appearance Urine pH Ur Specific [place] Urine Protein Urine Glucose (UA) Urine Ketones Urine Blood Urine Nitrite Urine Bilirubin Urine Urobilinogen Ur Leukocyte Esterase RPR Titer Nonreactive aaox3 ambulating no acute distress Assessment: 10/01/18 12:44 mild withdrawal sx Plan: continue detox increase fluids
[2018-10-01] MEDS: chlordiazePOXIDE 5 MG CAPSULE PO SCH (22:14)
[2018-10-01] MEDS: QUEtiapine FUMARATE 300 MG TABLET PO SCH (22:14)
[2018-10-01] MEDS: THIAMINE HCL 100 MG TABLET (FP) PO SCH (22:14)
[2018-10-02] MEDS: chlordiazePOXIDE 5 MG CAPSULE PO SCH ×3 (06:07→17:40)
[2018-10-02] MEDS: PRENATAL VITAMINS W/ FOLIC ACID TABLET (FP) PO SCH (10:25)
[2018-10-02] MEDS: NICOTINE 14 MG/24 HOURS TOPICAL PATCH TD SCH (10:26)
--- NOTE | 2018-10-02 17:02 | PN ---
[facility] Progress Note (SOAP) Subjective: sweats shakes Objective: 10/02/18 17:01 A & O x 3 ambulating with a steady gait Vital Signs Temperature 97.9 F 10/02/18 14:33 Pulse Rate 82 10/02/18 14:33 Respiratory Rate 18 10/02/18 14:33 Blood Pressure 133/85 10/02/18 14:33 O2 Sat by Pulse Oximetry (%) Assessment: 10/02/18 17:02 withdrawal sx Plan: continue detox continue increased hydration For d/c in the a.m
[2018-10-02] MEDS: QUEtiapine FUMARATE 300 MG TABLET PO SCH (22:14)
[2018-10-02] MEDS: THIAMINE HCL 100 MG TABLET (FP) PO SCH (22:14)
[2018-10-02] MEDS: chlordiazePOXIDE HCL 10 MG CAPSULE PO SCH (22:14)
[2018-10-03] MEDS: chlordiazePOXIDE HCL 10 MG CAPSULE PO SCH ×2 (07:04→10:48)
[2018-10-03 09:30] VITALS: BP 114/76; PULSE 100; TEMP 98.4
[2018-10-03] MEDS: NICOTINE 14 MG/24 HOURS TOPICAL PATCH TD SCH (10:46)
[2018-10-03] MEDS: PRENATAL VITAMINS W/ FOLIC ACID TABLET (FP) PO SCH (10:48)
--- NOTE | 2018-10-03 12:50 | DS ---
[facility] Detox Discharge Summary Admission Date: 09/29/18 Discharge Date: 10/03/18 - History Present History: Alcohol Dependence, Cocaine Dependence Additional Comments: Patient completed detox successfully and is scheduled for discharge today. Patient is A/A/Ox3, in nad, ambulatory. Patient instructed to follow up with his PCP within 1-2 weeks. Pertinent Past History: Alcohol dependence Cocaine dependence Nicotine dependence - Physical Exam Results Vital Signs: Vital Signs Temperature 98.4 F 10/03/18 09:29 Pulse Rate 100 H 10/03/18 09:29 Respiratory Rate 16 10/03/18 09:29 Blood Pressure 114/76 10/03/18 09:29 O2 Sat by Pulse Oximetry (%) Pertinent Admission Physical Exam Findings: Withdrawal symptoms Laboratory Tests 09/29/18 09/30/18 09/30/18 22:00 07:00 07:00 WBC 4.2 RBC 4.12 Hgb 13.0 Hct 36.9 MCV 89.6 MCH 31.6 MCHC 35.3 RDW 13.9 Plt Count 220 MPV 7.7 Sodium 139 Potassium 4.0 Chloride 106 Carbon Dioxide 28 Anion Gap 5 L BUN 18 Creatinine 0.9 Creat Clearance w eGFR > 60 Random Glucose 96 Calcium 8.6 Total Bilirubin 0.3 AST 16 ALT 11 L Alkaline Phosphatase 77 Total Protein 6.0 L Albumin 3.1 L Urine Color Yellow Urine Appearance Clear Urine pH 5.0 Ur Specific [place] 1.023 Urine Protein Negative Urine Glucose (UA) Negative Urine Ketones Negative Urine Blood Negative Urine Nitrite Negative Urine Bilirubin Negative Urine Urobilinogen 4.0 e.u/dl Ur Leukocyte Esterase Negative RPR Titer 09/30/18 07:00 WBC RBC Hgb Hct MCV MCH MCHC RDW Plt Count MPV Sodium Potassium Chloride Carbon Dioxide Anion Gap BUN Creatinine Creat Clearance w eGFR Random Glucose Calcium Total Bilirubin AST ALT Alkaline Phosphatase Total Protein Albumin Urine Color Urine Appearance Urine pH Ur Specific [place] Urine Protein Urine Glucose (UA) Urine Ketones Urine Blood Urine Nitrite Urine Bilirubin Urine Urobilinogen Ur Leukocyte Esterase RPR Titer Nonreactive Labs reviewed - Treatment Hospital Course: Detox Protocol Followed, Detoxed Safely, Responded well, Discharged Condition Good - Medication Discharge Medications: Ambulatory Orders Quetiapine Fumarate [Seroquel -] 200 mg PO HS 06/01/17 Paliperidone Palmitate [Invega Sustenna] 156 mg IM MONTHLY 09/29/18 Quetiapine Fumarate [Seroquel -] 300 mg PO HS #30 tab 09/30/18 - Diagnosis (1) Depression Status: Chronic (2) Alcohol dependence with uncomplicated withdrawal Status: Acute (3) Cocaine dependence, uncomplicated Status: Chronic (4) Nicotine dependence Status: Chronic Qualifiers: Nicotine product type: cigarettes Substance use status: in withdrawal Qualified Code(s): F17.213 - Nicotine dependence, cigarettes, with withdrawal - AMA Did Patient Leave Against Medical Advice: No (F/U with PCP within 1-2 weeks)
== END 2018-10-03 10:49 | disposition home or self-care (01) | DRG 774 ==
LOC: YASAS 13:37 → Y6N 18:15
PROVIDERS: ADMIT Surgery; ATTEND Surgery
PROC: HZ2ZZZZ Detoxification Services for Substance Abuse Treatment (ICD-10-PCS; principal; 2018-09-29)
DX: F10.230 Alcohol dependence with withdrawal, uncomplicated (principal); F14.20 Cocaine dependence, uncomplicated; F17.213 Nicotine dependence, cigarettes, with withdrawal; F20.9 Schizophrenia, unspecified; F32.9 Major depressive disorder, single episode, unspecified
CPT/HCPCS: 36415; 80053; 81003; 85027; 86593; 93005; 93010

== ENCOUNTER 2019-02-01 11:52 | Inpatient (IN) | payer OTHER | END 2019-02-03 16:30 | disposition left against medical advice (07) | LOC: YASAS 11:52 → Y5N 16:15 ==

== ENCOUNTER 2024-07-03 20:06 | Inpatient (IN) | payer OTHER ==
[2024-07-03 20:28] VITALS: BMI 21.9
[2024-07-03] MEDS ORDERED: MAGNESIUM HYDROX 2400MG/30ML ORAL SUSPENSION 30 ML CUP PO PRN (21:00)
[2024-07-03] MEDS ORDERED: ACETAMINOPHEN 325 MG TABLET (FP) PO PRN (21:00)
[2024-07-03] MEDS ORDERED: MAG HYDROX/AL HYDROX/SIMETH 30 ML UNIT-DOSE CUP PO PRN (21:00)
[2024-07-03] MEDS ORDERED: ONDANSETRON *ODT* 4 MG TABLET SL PRN (21:00)
[2024-07-03] MEDS ORDERED: LOPERAMIDE HCL 2 MG CAPSULE PO PRN (21:00)
[2024-07-03] MEDS ORDERED: BISMUTH SUBSALICYLATE 524 MG/30 ML PO PRN (21:00)
[2024-07-03] MEDS ORDERED: DICYCLOMINE HCL 10 MG CAPSULE PO PRN (21:00)
[2024-07-03] MEDS ORDERED: guaiFENesin 600 MG TABLET.ER (FP) PO PRN (21:00)
[2024-07-03] MEDS ORDERED: NALOXONE (NARCAN) HCL 4 MG/0.1 ML SPRAY NS PRN (21:00)
[2024-07-03] MEDS ORDERED: NALOXONE (NYS OPIOID OVERDOSE PROGRAM) 4 MG/0.1 ML SPRAY NS PRN (21:00)
[2024-07-03] MEDS ORDERED: BENZOCAINE/MENTHOL (CHLORASEPTIC ) LOZENGE MM PRN (21:00)
[2024-07-03] MEDS ORDERED: BENZONATATE 200 MG CAPSULE PO PRN (21:00)
[2024-07-03] MEDS ORDERED: POLYETHYLENE GLYCOL (HEALTHYLAX) 3350 17 GM PACKET PO PRN (21:00)
[2024-07-03] MEDS ORDERED: diazePAM 5 MG TABLET PO PRN (21:00)
[2024-07-03] MEDS ORDERED: NICOTINE POLACRILEX 4 MG GUM BUC PRN (21:00)
[2024-07-03] MEDS: MELATONIN 5 MG TABLETS PO SCH (23:36)
[2024-07-03] MEDS: THIAMINE 100 MG TABLET PO SCH (23:37)
[2024-07-03] MEDS: diazePAM 5 MG TABLET PO SCH (23:59)
[2024-07-03] MEDS: IBUPROFEN 400 MG TABLET (FP) PO PRN (23:59)
[2024-07-04] MEDS ORDERED: diazePAM 5 MG TABLET ONE (00:02)
[2024-07-04] MEDS ORDERED: IBUPROFEN 400 MG TABLET (FP) PO ONE (00:03)
[2024-07-04] MEDS: PRENATAL VITAMINS W/ FOLIC ACID TABLET (FP) PO SCH (10:27)
[2024-07-04] MEDS: IBUPROFEN 600 MG TABLET (FP) PO PRN (10:36)
[2024-07-04] MEDS: NICOTINE 14 MG/24 HOURS TOPICAL PATCH TD SCH (10:41)
[2024-07-04 12:36] LABS: HEMATOCRIT 37.3 % (35.4-49); HEMOGLOBIN 12.1 GM/dL (11.7-16.9); MCH 29.8 pg (25.7-33.7); MCHC 32.4 g/dl (32.0-35.9); MEAN CELL VOLUME 91.9 fl (80-96); MEAN PLT VOLUME 8.1 fl (7.5-11.1); PLATELET COUNT 305 10^3/uL (134-434); RBC 4.06 M/mm3 (4.00-5.60); WHITE BLOOD COUNT 4.2 K/mm3 (4.0-10.0)
[2024-07-04 12:40] LABS: CHLORIDE 111 mmol/L (98-107); POTASSIUM 4.7 mmol/L (3.5-5.1); SODIUM 142 mmol/L (136-145)
[2024-07-04 12:45] LABS: ALBUMIN 2.5 g/dl (3.4-5.0); BLOOD UREA NITROGEN 14.9 mg/dL (7-18); CALCIUM 8.9 mg/dL (8.5-10.1)
[2024-07-04 12:46] LABS: ANION GAP 3 mmol/L (4-13); CO2 28 mmol/L (21-32); GLUCOSE,RANDOM 70 mg/dL (74-106)
[2024-07-04 12:48] LABS: CREATININE 0.8 mg/dL (0.55-1.3); SGOT/AST 22 U/L (15-37); SGPT/ALT 12 U/L (13-61)
[2024-07-04 12:50] LABS: BILIRUBIN,TOTAL 0.4 mg/dL (0.2-1); TOT PROT 5.7 g/dl (6.4-8.2)
[2024-07-04 12:51] LABS: ALK PHOS 96 U/L (45-117)
[2024-07-05] MEDS: diazePAM 5 MG TABLET PO SCH (06:40)
[2024-07-05 20:49] VITALS: RESP 16
[2024-07-06] MEDS: diazePAM 5 MG TABLET PO SCH (06:46)
[2024-07-06 09:31] VITALS: BP 132/75; PULSE 90; TEMP 98.1
[2024-07-06] MEDS: NALOXONE (NYS OPIOID OVERDOSE PROGRAM) 4 MG/0.1 ML SPRAY NS SCH (10:52)
[2024-07-07] MEDS ORDERED: diazePAM 5 MG TABLET PO ONE (06:00)
== END 2024-07-06 11:08 | disposition home or self-care (01) | DRG 774 ==
LOC: YASAS 20:06 → Y6N 07-04 00:59
PROVIDERS: ADMIT Allergy & Immunology; ATTEND Surgery
PROC: HZ2ZZZZ Detoxification Services for Substance Abuse Treatment (ICD-10-PCS; principal; 2024-07-04)
DX: F10.230 Alcohol dependence with withdrawal, uncomplicated (principal); F14.20 Cocaine dependence, uncomplicated; F17.210 Nicotine dependence, cigarettes, uncomplicated; F20.0 Paranoid schizophrenia; F19.24 Other psychoactive substance dependence with psychoactive substance-induced mood disorder; Z59.00 Homelessness unspecified; Z91.199 Patient's noncompliance with other medical treatment and regimen due to unspecified reason
CPT/HCPCS: 36415; 80053; 80305; 80307; 85027; 86780; 93005; 93010

== ENCOUNTER 2024-11-03 10:58 | Inpatient (IN) | payer OTHER ==
[2024-11-03] MEDS ORDERED: MAG HYDROX/AL HYDROX/SIMETH 30 ML UNIT-DOSE CUP PO PRN (11:37)
[2024-11-03] MEDS ORDERED: NALOXONE (NARCAN) HCL 4 MG/0.1 ML SPRAY NS PRN (11:37)
[2024-11-03] MEDS ORDERED: ONDANSETRON *ODT* 4 MG TABLET SL PRN (11:37)
[2024-11-03] MEDS ORDERED: DICYCLOMINE HCL 10 MG CAPSULE PO PRN (11:37)
[2024-11-03] MEDS ORDERED: diazePAM 5 MG TABLET PO PRN (11:37)
[2024-11-03] MEDS ORDERED: BENZOCAINE/MENTHOL (CHLORASEPTIC ) LOZENGE MM PRN (11:37)
[2024-11-03] MEDS ORDERED: BENZONATATE 200 MG CAPSULE PO PRN (11:37)
[2024-11-03] MEDS ORDERED: POLYETHYLENE GLYCOL (HEALTHYLAX) 3350 17 GM PACKET PO PRN (11:37)
[2024-11-03] MEDS ORDERED: MAGNESIUM HYDROX 2400MG/30ML ORAL SUSPENSION 30 ML CUP PO PRN (11:37)
[2024-11-03] MEDS ORDERED: guaiFENesin 600 MG TABLET.ER (FP) PO PRN (11:37)
[2024-11-03] MEDS ORDERED: BISMUTH SUBSALICYLATE 262 MG/15 ML BTL PO PRN (11:37)
[2024-11-03] MEDS ORDERED: IBUPROFEN 400 MG TABLET (FP) PO PRN (11:37)
[2024-11-03] MEDS ORDERED: LOPERAMIDE HCL 2 MG CAPSULE PO PRN (11:37)
[2024-11-03 11:55] VITALS: BMI 22.5
[2024-11-03] MEDS ORDERED: PRENATAL VITAMINS W/ FOLIC ACID TABLET (FP) PO ONE (12:42)
[2024-11-03] MEDS: NICOTINE 14 MG/24 HOURS TOPICAL PATCH TD SCH (12:43)
[2024-11-03] MEDS: PRENATAL VITAMINS W/ FOLIC ACID TABLET (FP) PO SCH (12:43)
[2024-11-03] MEDS: BACITRACIN ZINC 15 GM TUBE TOPICAL OINTMENT TP SCH (12:44)
[2024-11-03] MEDS: NALTREXONE HCL 50 MG TABLET PO SCH (18:36)
[2024-11-03] MEDS: diazePAM 5 MG TABLET PO SCH (18:36)
[2024-11-03] MEDS: AMOXICILLIN 500 MG CAPSULE (FP) PO SCH (22:31)
[2024-11-03] MEDS: THIAMINE 100 MG TABLET PO SCH (22:31)
[2024-11-03] MEDS: ACETAMINOPHEN 325 MG TABLET (FP) PO PRN (22:32)
[2024-11-03] MEDS: MELATONIN 5 MG TABLETS PO SCH (22:34)
[2024-11-04] MEDS: IBUPROFEN 600 MG TABLET (FP) PO PRN (08:55)
[2024-11-04] MEDS: NALTREXONE HCL 50 MG TABLET PO SCH (10:25)
[2024-11-04] MEDS: METHOCARBAMOL 500 MG TABLET PO PRN (10:25)
[2024-11-04 20:47] VITALS: RESP 16
[2024-11-05] MEDS: diazePAM 5 MG TABLET PO SCH (05:46)
[2024-11-06] MEDS: diazePAM 5 MG TABLET PO SCH (06:05)
[2024-11-06 08:43] VITALS: BP 132/81; PULSE 82; TEMP 98.1
[2024-11-06] MEDS: hydrOXYzine PAMOATE 25 MG CAPSULE (FP) PO PRN (09:32)
[2024-11-07] MEDS ORDERED: diazePAM 5 MG TABLET PO ONE (06:00)
== END 2024-11-06 10:50 | disposition home or self-care (01) | DRG 774 ==
LOC: YASAS 10:58 → Y6N 12:13
PROVIDERS: ADMIT Allergy & Immunology; ATTEND Allergy & Immunology
PROC: HZ2ZZZZ Detoxification Services for Substance Abuse Treatment (ICD-10-PCS; principal; 2024-11-03)
DX: F10.230 Alcohol dependence with withdrawal, uncomplicated (principal); F14.20 Cocaine dependence, uncomplicated; F17.210 Nicotine dependence, cigarettes, uncomplicated; F20.0 Paranoid schizophrenia; L97.828 Non-pressure chronic ulcer of other part of left lower leg with other specified severity; L97.818 Non-pressure chronic ulcer of other part of right lower leg with other specified severity
CPT/HCPCS: 80305; 80307; 93005; 93010